=== PATIENT | female | born 1965 | race Caucasian/White ===

== ENCOUNTER 2023-05-14 12:27 | Outpatient (CLI) | payer SELFPAY ==
--- NOTE | 2023-05-14 12:46 | US_ITS ---
WS: [id number] DIAGNOSTIC BILATERAL DIGITAL BREAST TOMOSYNTHESIS MAMMOGRAPHY WITH CAD RIGHT breast ultrasound, limited HISTORY: RIGHT breast abscess. COMPARISON: 04/17/2019 TECHNIQUE: Bilateral craniocaudad, mediolateral oblique, and mediolateral views are submitted with to mosynthesis and SM. Spot compression RIGHT CC. Computer aided detection utilized. Breast composition: The breasts are heterogeneously dense, which may obscure small masses. There is a n area of mild skin thickening along the inferior breast. This is just posterior and inferior to the nipple. There is some very mild asymmetry within each breast but no mass or distortion identified. RIGHT breast ultrasound, limited. There is no complex fluid collection identified. There is very minimal skin thickening but no increas ed vascularity and no mass. Skin thickening measures up to 3 mm which corresponds to the skin thicken ing noted by mammography also. IMPRESSION: US/US breast RT limited* [id number] BI-RADS: 2-Benign FOLLOW UP: 1 Year Follow-up No breast abscess or mass identified. There is some very mild skin thickening w hich is likely related to edema or resolving hematoma.
--- NOTE | 2023-05-14 13:00 | MM_ITS ---
WS: [id number] DIAGNOSTIC BILATERAL DIGITAL BREAST TOMOSYNTHESIS MAMMOGRAPHY WITH CAD RIGHT breast ultrasound, limited HISTORY: RIGHT breast abscess. COMPARISON: 04/17/2019 TECHNIQUE: Bilateral craniocaudad, mediolateral oblique, and mediolateral views are submitted with to mosynthesis and SM. Spot compression RIGHT CC. Computer aided detection utilized. Breast composition: The breasts are heterogeneously dense, which may obscure small masses. There is a n area of mild skin thickening along the inferior breast. This is just posterior and inferior to the nipple. There is some very mild asymmetry within each breast but no mass or distortion identified. RIGHT breast ultrasound, limited. There is no complex fluid collection identified. There is very minimal skin thickening but no increas ed vascularity and no mass. Skin thickening measures up to 3 mm which corresponds to the skin thicken ing noted by mammography also. IMPRESSION: MM/[place] [id number] BI-RADS: 2-Benign FOLLOW UP: 1 Year Follow-up No breast abscess or mass identified. There is some very mild skin thickening w hich is likely related to edema or resolving hematoma.
== END 2023-05-14 12:28 | disposition home or self-care (01) ==
PROVIDERS: PCP Nurse Practitioner Family; Visit Provider Surgery
DX: N61.1 Abscess of the breast and nipple (principal)
CPT/HCPCS: 76642; 77062; G0279